=== PATIENT | male | born 1995 | race Caucasian/White ===

== ENCOUNTER 2018-09-08 20:19 | Emergency (ER) | payer MEDICAID ==
[~2018-09-08] VITALS: Ht 172.7 cm; Wt 59.0 kg
[2018-09-08] MEDS ORDERED: PRED20 PO (21:06)
[2018-09-08] MEDS ORDERED: Triamcinolone A15 G3 TOP (21:06)
== END 2018-09-08 21:39 | disposition home or self-care (01) ==
LOC: ER 20:19
DX: L25.9 Unspecified contact dermatitis, unspecified cause (principal); Z88.5 Allergy status to narcotic agent; F17.200 Nicotine dependence, unspecified, uncomplicated
CPT/HCPCS: 96372; 99282-25; J2930

== ENCOUNTER 2018-11-05 16:02 | Emergency (ER) | payer OTHER ==
[~2018-11-05] VITALS: Ht 170.2 cm; Wt 74.8 kg
[~2018-11-05 16:02] MED LIST: PRED20 PO; Triamcinolone A15 G3 TOP
[2018-11-05 16:34] LABS: Source, Urine Clean Catch
[2018-11-05 16:38] LABS: Appearance, Urine Clear (Clear); Bilirubin, Urine Neg (Neg); Blood, Urine Neg (Neg); Color, Urine Yellow (P-Yellow); Glucose Qualitative, Urine Neg (Neg); Ketones, Urine Neg (Neg); Leukocyte Esterase, Urine 1+ (Neg); Nitrite, Urine Neg (Neg); Protein, Urine Neg (Neg); Specific Gravity, Urine 1.025 (1.003-1.022); Urobilinogen, Urine NORM (Normal)
[2018-11-05 16:52] LABS: Red Blood Cells, Urine 0-2 /hpf (0-2); White Blood Cells, Urine 0-2 /hpf (0-5)
[2018-11-05 16:53] LABS: Bacteria Not Seen /hpf; Squamous Epithelial Cells Not Seen /hpf (Few)
[2018-11-07 23:09] LABS: CHLAMYDIA TRACHOMATIS, NAA Negative (Negative); NEISSERIA GONORRHOEAE, NAA Negative (Negative)
== END 2018-11-05 17:57 | disposition home or self-care (01) ==
LOC: ER 16:02
PROVIDERS: Physician Assistant
DX: R30.0 Dysuria (principal); R35.0 Frequency of micturition; F17.200 Nicotine dependence, unspecified, uncomplicated; Z88.5 Allergy status to narcotic agent; Z79.52 Long term (current) use of systemic steroids; Z87.442 Personal history of urinary calculi
CPT/HCPCS: 81001; 87491; 87591; 96372; 99283-25; J0696

== ENCOUNTER 2019-11-05 18:06 | Emergency (ER) | payer SELFPAY ==
[~2019-11-05] VITALS: Ht 177.8 cm; Wt 63.5 kg
[2019-11-05 18:28] LABS: Source, Urine Clean Catch
[2019-11-05 18:32] LABS: Appearance, Urine Clear (Clear); Bilirubin, Urine Neg (Neg); Blood, Urine Neg (Neg); Color, Urine Yellow (P-Yellow); Glucose Qualitative, Urine Neg (Neg); Ketones, Urine Neg (Neg); Leukocyte Esterase, Urine Neg (Neg); Nitrite, Urine Neg (Neg); Protein, Urine Neg (Neg); Urobilinogen, Urine NORM (Normal)
[2019-11-05 18:59] LABS: BASOPHILS ABSOLUTE AUTO 0.04 K/mm3 (0.00-0.23); BASOPHILS PERCENT AUTO 1 % (0-2); EOSINOPHILS ABSOLUTE AUTO 0.88 K/mm3 (0.00-0.68); EOSINOPHILS PERCENT AUTO 12 % (0-6); Hematocrit 48.1 % (37.0-53.0); Hemoglobin 15.6 g/dL (13.5-17.5); IMMATURE GRAN ABSOLUTE AUTO 0.01 K/mm3 (0.00-0.10); IMMATURE GRAN PERCENT AUTO 0 % (0-1); LYMPHOCYTES ABSOLUTE AUTO 2.83 K/mm3 (0.84-5.20); LYMPHOCYTES PERCENT AUTO 37 % (21-46); MONOCYTES ABSOLUTE AUTO 0.55 K/mm3 (0.16-1.47); MONOCYTES PERCENT AUTO 7 % (4-13); Mean Corpuscular HGB 31.1 pg (26.0-34.0); Mean Corpuscular HGB Conc 32.4 g/dL (31.5-36.5); Mean Corpuscular Volume 96 fL (80-100); Mean Platelet Volume 11.6 fL (9.1-12.4); NEUTROPHILS PERCENT AUTO 43 % (41-73); Platelet Count 157 K/mm3 (150-400); RDW Coefficient Variation 13.2 % (11.7-14.2); RDW Standard Deviation 47.6 fL (35.1-46.3); Red Blood Cell Count 5.01 M/mm3 (4.30-5.90); White Blood Cell Count 7.61 K/mm3 (4.00-11.30)
[2019-11-05 19:23] LABS: Alanine Aminotransfer (ALT/SGP 20 U/L (12-78); Albumin, Blood 4.2 g/dL (3.4-5.0); Albumin/Globulin Ratio 1.4 (0.8-1.8); Alk Phos 73 U/L (50-136); Anion Gap 7 mmol/L (6-16); Aspartate Aminotrans (AST/SGOT 25 U/L (12-37); Bilirubin, Total 0.8 mg/dL (0.1-1.0); Blood Urea Nitrogen 11 mg/dL (8-24); Bun/Creatinine Ratio 11.9 (12.0-20.0); CO2, Blood 26 mmol/L (21-32); Calcium, Blood 8.7 mg/dL (8.5-10.1); Chloride, Blood 105 mmol/L (98-108); Creatinine, Blood 0.92 mg/dL (0.60-1.20); Globulin, Blood 3.1 g/dL (2.2-4.0); Glomerular Filtration Rate >60 (60-); Glucose, Blood 96 mg/dL (70-99); Potassium, Blood 3.8 mmol/L (3.5-5.5); Sodium, Blood 138 mmol/L (136-145); Total Protein, Blood 7.3 g/dL (6.4-8.2)
[2019-11-05] MEDS ORDERED: Kristalose20 GM PO (19:56)
[2019-11-05] MEDS ORDERED: METAMUCIL POWD822 G1 PO (19:56)
== END 2019-11-05 19:59 | disposition home or self-care (01) ==
LOC: ER 18:06
PROVIDERS: Physician Assistant
DX: K59.00 Constipation, unspecified (principal); M79.81 Nontraumatic hematoma of soft tissue; Z88.5 Allergy status to narcotic agent; Z88.8 Allergy status to other drugs, medicaments and biological substances; F17.200 Nicotine dependence, unspecified, uncomplicated; Z87.19 Personal history of other diseases of the digestive system
CPT/HCPCS: 36415; 74018; 80053; 81003; 85025; 99283-25